=== PATIENT | female | born 1965 | race Caucasian/White ===

== ENCOUNTER 2024-06-15 15:39 | Emergency (ER) | payer MEDICAID ==
[~2024-06-15] VITALS: Ht 167.6 cm; Wt 137.0 kg
[2024-06-15 15:54] VITALS: O2SAT 95
[2024-06-15] MEDS ORDERED: NAPR-681 MT (18:00)
[2024-06-15] MEDS: IBUPROFEN 800MG TABLET PO ONE (19:22)
[2024-06-15 19:24] VITALS: BP 140/67; PULSE 64; RESP 18; TEMP 36.89184; O2SAT 97
== END 2024-06-15 19:31 | disposition home or self-care (01) ==
LOC: ER 15:39
DX: S93.402A Sprain of unspecified ligament of left ankle, initial encounter (principal); I10 Essential (primary) hypertension; X58.XXXA Exposure to other specified factors, initial encounter; Y93.89 Activity, other specified; Y92.89 Other specified places as the place of occurrence of the external cause; Y99.8 Other external cause status
CPT/HCPCS: 73610; 99283